=== PATIENT | male | born 1980 | race African-American/Black ===

== ENCOUNTER 2022-05-23 14:17 | Emergency (ER) | payer OTHER ==
[~2022-05-23] VITALS: Ht 175.3 cm; Wt 78.0 kg
[2022-05-23] MEDS ORDERED: METHOCARBAMOL 500MG TABLET PO ONE (17:15)
[2022-05-23] MEDS ORDERED: KETOROLAC 60MG/2ML VIAL IM ONE (17:15)
[2022-05-23] MEDS ORDERED: NAPR-681 MT (17:49)
[2022-05-23] MEDS ORDERED: LIDO1ADH23 TP (17:49)
[2022-05-23] MEDS ORDERED: METH-773 MT (17:49)
[2022-05-23 17:53] VITALS: BP 104/68
== END 2022-05-23 18:16 | disposition home or self-care (01) ==
LOC: ER 14:17
DX: M54.2 Cervicalgia (principal); M54.50 Low back pain, unspecified; M25.511 Pain in right shoulder; V43.52XA Car driver injured in collision with other type car in traffic accident, initial encounter; Y93.89 Activity, other specified; Y92.488 Other paved roadways as the place of occurrence of the external cause
CPT/HCPCS: 72100; 73030; 96372; 99284; J1885